=== PATIENT | male | born 1955 | race Caucasian/White ===

== ENCOUNTER 2019-12-03 18:01 | Emergency (ER) | payer OTHER ==
[~2019-12-03] VITALS: Ht 180.3 cm; Wt 79.4 kg
--- OUTSIDE RECORDS SUMMARY | 2019-12-03 18:03 | XMS REPORT | Clinical Summary ---
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 Active loratadine (CLARITIN) 10 Take 10 mg by 0 mg tablet mouth daily as needed for allergies. Active Problems Problem Noted Date ICH (intracerebral hemorrhage) 09/12/2016 Social History Date Tobacco Use Types Packs/Day Years Used Never Smoker Drinks/Week oz/Week Comments Alcohol Use No Sex Assigned at Date Recorded Not on file Industry Job Start Date Occupation Not on file Not on file Not on file Travel End Travel History Travel Start No recent travel history available. 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
[2019-12-03] MEDS ORDERED: SODIUM CHLORIDE 0.9% 1000ML 1,000 ML IV STA (18:37)
[2019-12-03 18:51] LABS: BASOPHILS % 0.1 % (0.0-1.0); HEMATOCRIT 44.5 % (38.2-49.6); HEMOGLOBIN 15.3 g/dL (14.0-18.0); LYMPHOCYTES # (AUTO) 0.3 (1.0-3.2); LYMPHOCYTES % 2.1 % (18.0-39.1); MEAN CORPUSCULAR HEMOGLOBIN 30.9 pg (28-32); MEAN CORPUSCULAR HGB CONC 34.4 g/dL (31-35); MEAN CORPUSCULAR VOLUME 89.9 fL (81-99); MONOCYTES # (AUTO) 0.5 (0.2-0.8); MONOCYTES % 3.4 % (4.4-11.3); NEUTROPHILS # (AUTO) 13.7 (2.1-6.9); NEUTROPHILS % 94.1 % (38.7-80.0); PLATELET COUNT 181 x10e3/uL (140-360); RED BLOOD COUNT 4.95 x10e6/uL (4.3-5.7); RED CELL DISTRIBUTION WIDTH 12.4 % (11.7-14.4)
[2019-12-03 18:57] LABS: INR 0.97; PROTHROMBIN TIME 13.5 seconds (11.9-14.5)
[2019-12-03 18:58] LABS: PARTIAL THROMBOPLASTIN TIME 25.7 seconds (23.8-35.5)
[2019-12-03 19:07] LABS: ALBUMIN 3.9 g/dL (3.5-5.0); ALBUMIN/GLOBULIN RATIO 1.1 (0.8-2.0); ANION GAP 17.6 mmol/L (8-16); CALCIUM 9.7 mg/dL (8.4-10.2); CREATININE, SERUM 1.32 mg/dL (0.72-1.25); POTASSIUM 3.6 mmol/L (3.5-5.1)
[2019-12-03 19:15] LABS: CREATINE KINASE MB 0.9 ng/mL (0-5.0)
[2019-12-03] MEDS ORDERED: ACETAMINOPHEN 325 MG TAB PO STA (20:11)
[2019-12-03] MEDS ORDERED: IOPAMIDOL 370 MG/ML 200 ML INFUS..BTL INJ ONE (20:40)
--- NOTE | 2019-12-03 20:52 | Emergency Department Note ---
History of Present Illnes History of Present Illness Chief Complaint: Abdominal Complaints Stated Complaint: STOMACH PAIN,FEVER History of Present Illness This is a 64 year old male . Historian: Patient, Family Member Charge Loader Required: No Onset (how long ago): day(s) (2 days) Location: lower/mid abd Quality: aching/sharp Onset quality: gradual Duration (how long): day(s) (2 days) Progression: waxing and waning Chronicity: new Relieving factors: none Exacerbating factors: none Associated symptoms: nausea/vomiting Treatments prior to arrival: none (MARTHA REDMOND NP) Past Medical/Family History Physician Review I have reviewed the patient's past medical and family history. Any updates have been documented here. (MARTHA REDMOND NP) Past Medical History Recent Fever: Yes Clinical Suspicion of Infectio: Yes New/Unexplained Change in Ment: No Past Medical History: None Other Surgery: brain bleed swollen lymph node (MARTHA REDMOND NP) Social History Smoking Cessation: Former smoker Counseling Performed: No Alcohol Use: Daily Any Illegal Drug Use: No TB Exposure/Symptoms: No Physically hurt or threatened: No (MARTHA REDMOND NP) Other Last Tetanus: unk Any Pre-Existing Lines (PICC,: No Is patient up to date on immun: No Last Flu: ood Last Pneumovax: ood (MARTHA REDMOND NP) Review of Systems Review of Systems Constitutional: no symptoms EENTM: no symptoms Cardiovascular: no symptoms Respiratory: no symptoms Gastrointestinal: abdominal pain, nausea, vomiting Genitourinary: no symptoms Musculoskeletal: no symptoms Integumentary: no symptoms Neurological: no symptoms Psychological: no symptoms Endocrine: no symptoms Hematological/Lymphatic: no symptoms Review of other systems All other systems reviewed and negative. (MARTHA REDMOND NP) Physical Exam Related Data Allergies: Coded Allergies: Penicillins (Verified Allergy, Unknown, 12/03/19) tetracycline (Verified Adverse Reaction, Unknown, sick to stomach, 12/03/19) Triage Vital Signs Vital Signs Date Time Temp Pulse Resp B/P (MAP) Pulse Ox O2 Delivery O2 Flow Rate FiO2 12/03/19 18:26 97.8 128 20 163/74 95 (MARTHA REDMOND NP) Exam Narrative Exam Narrative Patient is a 64 year old male that presents with abdominal pain that started Monday with N/V. 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 denies any other compliants and states pain is now resolved. HR elevated in triage, denies any medical Hx (MARTHA REDMOND NP) Physical Exam CONSTITUTIONAL Constitutional: well-developed, well-nourished HENT HENT: normocephalic, atraumatic EYES Eyes: PERRL, conjunctivae normal NECK Neck: ROM normal, supple PULMONARY Pulmonary: effort normal, breath sounds normal CARDIOVASCULAR Cardiovascular: irregular rhythm, tachycardia GASTROINTESTINAL Abdominal: nontender, distension GENITOURINARY SKIN Skin: warm, dry MUSCULOSKELETAL Musculoskeletal: ROM normal NEUROLOGICAL Neurological: alert, oriented x 3 PSYCHOLOGICAL Psychiatric/behavioral: mood/affect normal (MARTHA REDMOND NP) Results Imaging Y: Yes Impressions "no acute inflammatory process in the abd/pelvis prominent prostate gland" (JAQUELINE SALINAS DO) Critical Care Time Subsequent provider I assumed direction of critical care for this patient from another provider of my specialty. (MARTHA REDMOND NP) Assessment & Plan Assessment & Plan Assessment & Plan PATIENT IN NO DISTRESS ,AWAITING ALL RESULTS. DISCUSSED WITH DR WHEAT PATIENT PRESENTATION,EXAM AND PLAN OF CARE. (MARTHA REDMOND NP) Reassessment Reassessment 1950-AWAITING ALL RESULTS. DISCUSSED PATIENT PRESENTATION WITH DR SALINAS. PATIENT IN NAD. AWAITING CT RESULTS. 2100- REPORT GIVEN TO DR SALINAS WHO WILL COMPLETE PATIENT VISIT (MARTHA REDMOND NP) Last Vital Signs Date Time Temp Pulse Resp B/P (MAP) Pulse Ox O2 Delivery O2 Flow Rate FiO2 12/03/19 18:26 97.8 128 20 163/74 95 (MARTHA REDMOND NP) Medications in the ED Sodium Chloride 1,000 ml @ 0 mls/hr Q0M STAT IV ; Start 12/03/19 at 18:37; Stop 12/03/19 at 18:40; Status DC (MARTHA REDMOND NP) MARTHA REDMOND NP December 03, 2019 18:48 JAQUELINE SALINAS DO December 03, 2019 21:49
[2019-12-03 22:06] VITALS: BP 124/78
--- NOTE | 2019-12-04 09:51 | Diagnostic Imaging Report ---
EXAMINATION: CHEST SINGLE (PORTABLE) INDICATION: Fever, abdominal pain COMPARISON: None FINDINGS: LINES/TUBES:None LUNGS:The lungs are well-inflated. No focal consolidation or pulmonary edema. PLEURA:No pleural effusion or pneumothorax. MEDIASTINUM:The cardiomediastinal silhouette appears normal in size and shape. BONES/SOFT TISSUES:No acute osseous injury. ABDOMEN:No free air under the diaphragm. IMPRESSION: No focal pneumonia or pulmonary edema. Signed by: Cricket Johnson MD on 12/04/2019 9:46 AM
--- NOTE | 2019-12-04 11:13 | Diagnostic Imaging Report ---
EXAM: CT Abdomen and Pelvis WITH intravenous contrast INDICATION: Abdominal pain COMPARISON: None. TECHNIQUE: Abdomen and pelvis were scanned utilizing a multidetector helical scanner from the lung base to the pubic symphysis after administration of IV contrast. Coronal and sagittal reformations were obtained. Routine protocol was performed. Scan was performed during portal venous phase. IV CONTRAST: 100mL of Isovue 370 ORAL CONTRAST: Water RADIATION DOSE: Total DLP: 375 mGy*cm Dose modulation, iterative reconstruction, and/or weight based adjustment of the mA/kV was utilized to reduce the radiation dose to as low as reasonably achievable. IMPRESSION: I reviewed the images and preliminary report provided by Dr. Sanchez and agree with the described findings in the preliminary report. No acute findings in the abdomen or pelvis to explain patient's current abdominal pain. Enlarged prostate measures 5.2 x 4.5 x 5.5 cm (volume estimate of 67cc). Signed by: Cricket Johnson MD on 12/04/2019 11:10 AM
== END 2019-12-03 22:14 | disposition home or self-care (01) ==
LOC: ER 18:01
DX: R50.9 Fever, unspecified (principal); R11.2 Nausea with vomiting, unspecified; R10.30 Lower abdominal pain, unspecified
CPT/HCPCS: 36415; 71045; 74177; 80053; 82550; 82553; 83690; 84484; 85025; 85610; 85730; 93005; 99284; J7030; Q9967